=== PATIENT | male | born 1995 | race Two or more races ===

== ENCOUNTER 2022-07-31 15:30 | Emergency (ER) | payer MEDICAID ==
[~2022-07-31] VITALS: Ht 175.3 cm; Wt 81.7 kg
[2022-07-31 15:42] VITALS: BP 149/91
[2022-07-31 18:11] LABS: Basophils # (auto) 0.1 10 ^3/uL (0-0.2); Basophils % (auto) 0.5 % (0.0-2.0); Eosinophils # (auto) 0.3 10 ^3/uL (0-0.8); Eosinophils % (auto) 2.5 % (0.0-7.0); Hematocrit 44.4 % (41.0-53.0); Hemoglobin 14.7 g/dL (13.5-17.5); Lymphocytes # (auto) 3.2 10 ^3/uL (0.4-5.4); Lymphocytes % (auto) 27.5 % (10.0-50.0); Mean Corpuscular Hemoglobin 28.8 pg (28.0-32.0); Mean Corpuscular Hgb Conc. 33.1 g/dL (32.0-36.0); Mean Corpuscular Volume 87.2 fL (80.0-100.0); Monocytes # (auto) 1.2 10 ^3/uL (0-1.3); Neutrophils # (auto) 6.9 10 ^3/uL (1.6-8.6); Neutrophils % (auto) 59.5 % (37.0-80.0); Nucleated Red Blood Cells % 0.1 %; Red Blood Cells 5.09 10^6/uL (4.5-5.90); Red Cell Distribution Width 12.9 % (11.8-14.3); White Blood Cell 11.6 10^3/uL (4.4-10.8)
[2022-07-31 18:43] LABS: Potassium 3.8 mmol/L (3.5-5.1)
[2022-07-31 18:48] LABS: BUN/Creatinine Ratio 9.3; Calcium 9.2 mg/dL (8.5-10.1)
[2022-07-31 18:51] LABS: Bilirubin, Total 0.4 mg/dL (0.2-1.0); Total Protein 8.1 g/dL (6.4-8.2)
[2022-07-31] MEDS ORDERED: CIPR500T4 PO (20:12)
== END 2022-07-31 20:40 | disposition left against medical advice (07) ==
LOC: ER 15:30
DX: R19.7 Diarrhea, unspecified (principal); Z79.1 Long term (current) use of non-steroidal anti-inflammatories (NSAID)
CPT/HCPCS: 36415; 80053; 85025